=== PATIENT | female | born 1975 | race Asian ===

== ENCOUNTER 2019-05-03 14:53 | Outpatient (CLI) | payer OTHER ==
--- NOTE | 2019-05-03 16:17 | MMO ---
Bilateral MAMMO Bilat Screen [facility]. CLINICAL HISTORY: Patient is 43 years old and is seen for screening. The patient has no family history of breast cancer. The patient has no personal history of cancer. VIEWS: The views performed were: bilateral craniocaudal with tomosynthesis and bilateral mediolateral oblique with tomosynthesis. This study has been interpreted with the assistance of computer-aided detection. MAMMOGRAM FINDINGS: The breasts are heterogeneously dense, which could obscure a lesion on mammography. Benign calcifications are noted bilaterally. There are no suspicious masses, suspicious calcifications, or new areas of architectural distortion. IMPRESSION: THERE IS NO MAMMOGRAPHIC EVIDENCE OF MALIGNANCY. A ROUTINE FOLLOW-UP MAMMOGRAM IN 1 YEAR IS RECOMMENDED. THE RESULTS OF THIS EXAM WERE SENT TO THE PATIENT. ACR BI-RADS Category 2 - Benign finding MAMMOGRAPHY NOTE: 1. A negative mammogram report should not delay a biopsy if a dominant of clinically suspicious mass is present. 2. Approximately 10% to 15% of breast cancers are not detected by mammography. 3. Adenosis and dense breasts may obscure an underlying neoplasm. Reported by: TULIO LANZA MD Electonically Signed: [id number]
== END 2019-05-03 14:54 | disposition home or self-care (01) ==
LOC: BICMAMMO 14:53
PROVIDERS: ATTEND Family Medicine
DX: Z12.31 Encounter for screening mammogram for malignant neoplasm of breast (principal)
CPT/HCPCS: 77063; 77067

== ENCOUNTER 2019-06-28 14:35 | Outpatient (CLI) | payer OTHER ==
--- NOTE | 2019-06-28 15:18 | ULT ---
Exam: Pelvic ultrasound HISTORY: Irregular vaginal bleeding. COMPARISON: None TECHNIQUE: Multiple grayscale and color Doppler images were obtained in a transabdominal and transvag inal pelvic ultrasound. Spectral analysis of the Doppler waveforms of the ovaries were performed. FINDINGS: CERVIX: Not well evaluated on this exam. UTERUS: Normal in size without focal abnormality. ENDOMETRIAL STRIPE: 17 mm which is mildly increased for a normal menstruating female patient. No flui d or fluid collection is seen in the endometrial canal. Small amount of free fluid is seen in the cul-de-sac. RIGHT OVARY: A circumscribed oval-shaped anechoic cystic structure is present measuring 2.2 cm most c ompatible with a cyst. Flow is present in the right ovary. LEFT OVARY: Normal flow, without focal mass. IMPRESSION: 1. Thickening of the endometrium which measures 17 mm. No fluid or fluid collection is seen in the en dometrial canal. 2. Small right ovarian cyst. 3. Small amount of free fluid in the cul-de-sac probably physiologic in origin.
== END 2019-06-28 14:36 | disposition home or self-care (01) ==
LOC: BICULT 14:35
PROVIDERS: ATTEND Family Medicine
DX: N93.9 Abnormal uterine and vaginal bleeding, unspecified (principal); N83.201 Unspecified ovarian cyst, right side; R93.89 Abnormal findings on diagnostic imaging of other specified body structures
CPT/HCPCS: 76856

== ENCOUNTER 2019-11-09 13:51 | Emergency (ER) | payer OTHER ==
[2019-11-10 12:04] LABS: SARS-CoV-2 MS2 Positive; SARS-CoV-2 N Gene Negative; SARS-CoV-2 S Gene Negative; SARS-CoV-2 by NAA Not Detected (NotDetected); SARS-CoV-2 orf1ab Negative
== END 2019-11-09 14:00 | disposition home or self-care (01) ==
LOC: ERS 13:51
DX: R05 Cough (principal); J02.9 Acute pharyngitis, unspecified; R09.81 Nasal congestion; Z20.828 Contact with and (suspected) exposure to other viral communicable diseases
CPT/HCPCS: 87635; 99283; U0003

== ENCOUNTER 2022-06-26 10:35 | Outpatient (CLI) | payer BC | END 2022-06-26 10:36 | disposition home or self-care (01) | LOC: BICMAMMO 10:35 | PROVIDERS: ATTEND Obstetrics & Gynecology | DX: N63.10 Unspecified lump in the right breast, unspecified quadrant (principal); Z12.31 Encounter for screening mammogram for malignant neoplasm of breast | CPT/HCPCS: G0279 ==